=== PATIENT | male | born 1985 ===

== ENCOUNTER 2018-07-14 11:19 | Emergency (ER) | payer OTHER ==
[2018-07-14 11:22] VITALS: BMI 27.3
[2018-07-14 11:23] VITALS: BP 114/76; PULSE 88; RESP 18; TEMP 98.3; O2SAT 98
[2018-07-14] MEDS ORDERED: Lidocaine 5% Patch TD STA (12:20)
[2018-07-14] MEDS ORDERED: Lidocaine 5% Patch TD ONE (12:26)
--- NOTE | 2018-07-14 12:36 | ED PDOC ---
HPI: Back Time Seen by Provider: 07/14/18 12:01 Chief Complaint (Nursing): Back Pain Chief Complaint (Provider): Back pain History Per: Patient History/Exam Limitations: no limitations Onset/Duration Of Symptoms: Days (3) Current Symptoms Are (Timing): Still Present Quality Of Discomfort: "Pain" Associated Symptoms: None Exacerbating Factor(s): Turning Additional History Per: Patient Additional Complaint(s): 33yo male, otherwise well, comes to ER reporting atraumatic right lower back pain x 3 days. Patient states the pain radiates to his right leg and slightly to his left leg as well. Patient used Icy-Hot last night, and reports upon waking up this morning, the pain was worse. Otherwise, he denies any weakness, numbness, bowel/bladder incontinence, saddle anesthesia, abdominal pain, dysuria or hematuria. No additional complaints. PMD: None provided Past Medical History Reviewed: Historical Data, Nursing Documentation, Vital Signs Vital Signs: Last Vital Signs Temp 98.3 F 07/14/18 11:23 Pulse 88 07/14/18 11:23 Resp 18 07/14/18 11:23 BP 114/76 07/14/18 11:23 Pulse Ox 98 07/14/18 11:23 - Medical History PMH: No Chronic Diseases - Surgical History Surgical History: No Surg Hx - Family History Family History: States: No Known Family Hx - Social History Current smoker - smoking cessation education provided: No Alcohol: None Drugs: Denies - Immunization History Hx Tetanus Toxoid Vaccination: No Hx Influenza Vaccination: No - Home Medications Home Medications: Ambulatory Orders Medication Instructions Recorded Cyclobenzaprine [Cyclobenzaprine 10 mg PO Q8 PRN #10 tab 07/14/18 HCl] Naproxen [Naprosyn] 500 mg PO BID PRN #10 tab 07/14/18 - Allergies Allergies/Adverse Reactions: Allergies Allergy/AdvReac Type Severity Reaction Status Date / Time No Known Allergies Allergy Verified 07/14/18 11:42 Review of Systems ROS Statement: Except As Marked, All Systems Reviewed And Found Negative Constitutional: Negative for: Fever, Chills Gastrointestinal: Negative for: Abdominal Pain Genitourinary Male: Negative for: Dysuria, Frequency, Hematuria Musculoskeletal: Positive for: Back Pain (right lower back, radiating to right leg) Neurological: Negative for: Weakness, Numbness Physical Exam - Reviewed Nursing Documentation Reviewed: Yes Vital Signs Reviewed: Yes - Physical Exam Appears: Positive for: Uncomfortable Head Exam: Positive for: ATRAUMATIC, NORMAL INSPECTION, NORMOCEPHALIC Skin: Positive for: Normal Color Eye Exam: Positive for: Normal appearance Neck: Positive for: Supple Cardiovascular/Chest: Positive for: Regular Rate, Rhythm Respiratory: Positive for: Normal Breath Sounds Pulses-Dorsalis Pedis (L): 2+ Pulses-Dorsalis Pedis (R): 2+ Back: Positive for: Other (right paralumbar tenderness; (+) right straight leg raise at 35-40 degrees). Negative for: L CVA Tenderness, R CVA Tenderness, Vertebral Tenderness Extremity: Positive for: Normal ROM. Negative for: Tenderness Neurologic/Psych: Positive for: Alert, Oriented. Negative for: Motor/Sensory Deficits - ECG O2 Sat by Pulse Oximetry: 98 (RA) Pulse Ox Interpretation: Normal Medical Decision Making Medical Decision Makinyo male with right lower back pain, likely musculoskeletal Plan: -- Urinalysis -- UDS -- XR Lumbar spine -- Toradol 15mg IM -- Valium 10mg PO -- Lidoderm patch 1340 XR Lumbar Spine FINDINGS: BONES: Normal alignment. No listhesis. No fracture. DISC SPACES: Unremarkable. OTHER FINDINGS: None. IMPRESSION: Unremarkable radiographs of the lumbar spine. 1355 On reassessment, patient noted to be sleeping comfortably and is easily aroused. He states the pain is still present but has improved. Patient informed to follow up wit [facility] and is stable for discharge home; instructed to take medications as prescribed and to return to ER if symptoms worsen. Scribe Attestation: Documented by Nida Melgoza, acting as a scribe for SOPHIA Pack. Provider Scribe Attestation: All medical record entries made by the Scribe were at my direction and personally dictated by me. I have reviewed the chart and agree that the record accurately reflects my personal performance of the history, physical exam, medical decision making, and the department course for this patient. I have also personally directed, reviewed, and agree with the discharge instructions and disposition. Disposition - Clinical Impression Clinical Impression: Sciatica - Patient ED Disposition Is Patient to be Admitted: No - Disposition Disposition: Routine/Home Disposition Time: 13:58 Condition: STABLE Additional Instructions: FOLLOW UP WITH PMD FOR FURTHER EVALUATION RETURN TO ED IMMEDIATELY IF SYMPTOMS WORSEN NATAN LAKHANI, thank you for letting us take care of you today. Your provider was Destiny Sifuentes MD and you were treated for BACK PAIN. The emergency medical care you received today was directed at your acute symptoms. If you were prescribed any medication, please fill it and take as directed. It may take several days for your symptoms to resolve. Return to the Emergency Department if your symptoms worsen, do not improve, or if you have any other problems. Please contact your doctor or call one of the physicians/clinics you have been referred to that are listed on the Patient Visit Information form that is included in your discharge packet. Bring any paperwork you were given at discharge with you along with any medications you are taking to your follow up visit. Our treatment cannot replace ongoing medical care by a primary care provider outside of the emergency department. Thank you for allowing the [facility] team to be part of your care today. If you had an X-Ray or CT scan: A Radiologist will review the ED reading if any change in treatment is needed we will contact you. If you had a blood, urine, or wound culture: It will take several days for the results, if any change in treatment is needed we will contact you. If you had an STI test: It will take 48 hours for the results. Please call after 1 week if you have not heard back. Prescriptions: Cyclobenzaprine [Cyclobenzaprine HCl] 10 mg PO Q8 PRN #10 tab PRN Reason: Muscle Spasm Naproxen [Naprosyn] 500 mg PO BID PRN #10 tab PRN Reason: Pain Instructions: Sciatica (DC), Sciatica Exercises Forms: [facility] ED School/Work Excuse
--- NOTE | 2018-07-14 13:01 | RAD ---
Date of service: 07/14/2018 PROCEDURE: Radiographs of the Lumbar Spine. HISTORY: Pain, 2 days duration. No history of trauma COMPARISON: No prior. FINDINGS: BONES: Normal alignment. No listhesis. No fracture. DISC SPACES: Unremarkable. OTHER FINDINGS: None. IMPRESSION: Unremarkable radiographs of the lumbar spine.
[2018-07-14 13:41] LABS: SQUAMOUS EPITHIAL < 1 /hpf (0-5); URINE BILIRUBIN NEGATIVE (NEGATIVE); URINE BLOOD SMALL (NEGATIVE); URINE CLARITY CLEAR (Clear); URINE COLOR YELLOW (YELLOW); URINE GLUCOSE (UA) NEG (NEGATIVE); URINE LEUKOCYTE ESTERASE NEG Leu/uL (Negative); URINE PROTEIN NEGATIVE (NEGATIVE); URINE UROBILINOGEN 0.2-1.0 mg/dL (0.2-1.0)
[2018-07-14 13:45] LABS: BARBITURATES, UR NEGATIVE (NEGATIVE); BENZODIAZEPINES, UR NEGATIVE (NEGATIVE); OPIATES, UR NEGATIVE (NEGATIVE); PHENCYCLIDINE, UR NEGATIVE (NEGATIVE)
== END 2018-07-14 14:27 | disposition home or self-care (01) ==
LOC: H.ER 11:19
DX: M54.30 Sciatica, unspecified side (principal)
CPT/HCPCS: 72100; 80324; 80345; 80346; 80349; 80353; 80358; 80361; 81003; 83992; 96372; 99282; J1885